=== PATIENT | female | born 1970 | race Caucasian/White ===

== ENCOUNTER → 2017-11-07 | Outpatient (CLI) | payer BC | END | disposition home or self-care (01) | LOC: KCIC MRI 16:42 | DX: M50.321 Other cervical disc degeneration at C4-C5 level (principal); M43.12 Spondylolisthesis, cervical region; M48.02 Spinal stenosis, cervical region; G89.29 Other chronic pain | CPT/HCPCS: 72141 ==

== ENCOUNTER → 2017-12-23 | Outpatient (CLI) | payer BC ==
[~2017-12-23] MED LIST: IOHEXOL 180 MG/ML 10 ML VIAL.; LIDOCAINE 1% PF 2 ML VIAL.; methylPREDNISolone ACETATE 40 MG/ML VIAL.; methylPREDNISolone ACETATE 80 MG/ML VIAL.
== END | disposition home or self-care (01) ==
LOC: PNCL 07:42
DX: M50.122 Cervical disc disorder at C5-C6 level with radiculopathy (principal); M47.22 Other spondylosis with radiculopathy, cervical region; I10 Essential (primary) hypertension; M19.90 Unspecified osteoarthritis, unspecified site; Z85.828 Personal history of other malignant neoplasm of skin; G43.909 Migraine, unspecified, not intractable, without status migrainosus; Z90.49 Acquired absence of other specified parts of digestive tract; Z98.890 Other specified postprocedural states; Z79.899 Other long term (current) drug therapy; Z88.5 Allergy status to narcotic agent; Z83.3 Family history of diabetes mellitus; Z82.49 Family history of ischemic heart disease and other diseases of the circulatory system; Z83.79 Family history of other diseases of the digestive system
CPT/HCPCS: 62321; J1030; J1040; Q9965

== ENCOUNTER → 2018-01-06 | Outpatient (CLI) | payer BC | END | disposition home or self-care (01) | LOC: PNCL 08:06 | DX: M50.123 Cervical disc disorder at C6-C7 level with radiculopathy (principal); M47.22 Other spondylosis with radiculopathy, cervical region; Z88.6 Allergy status to analgesic agent | CPT/HCPCS: 62321; J1030; J1040; Q9965 ==

== ENCOUNTER → 2018-01-25 | Outpatient (CLI) | payer BC ==
[~2018-01-25] MED LIST changes: -LIDOCAINE 1% PF 2 ML VIAL.
== END | disposition home or self-care (01) ==
LOC: PNCL 08:08
DX: M50.123 Cervical disc disorder at C6-C7 level with radiculopathy (principal); M47.22 Other spondylosis with radiculopathy, cervical region; Z88.6 Allergy status to analgesic agent; Z90.49 Acquired absence of other specified parts of digestive tract; I10 Essential (primary) hypertension; Z83.3 Family history of diabetes mellitus; Z83.79 Family history of other diseases of the digestive system; Z82.49 Family history of ischemic heart disease and other diseases of the circulatory system; G43.909 Migraine, unspecified, not intractable, without status migrainosus; Z79.899 Other long term (current) drug therapy; Z85.828 Personal history of other malignant neoplasm of skin; M19.90 Unspecified osteoarthritis, unspecified site
CPT/HCPCS: 62321; J1030; J1040; Q9965

== ENCOUNTER → 2018-02-10 | Outpatient (CLI) | payer BC ==
[~2018-02-10] MED LIST changes: +BUPIVACAINE MPF 0.25% 10 ML VIAL.; +LIDOCAINE 2% PF 2ML VIAL.
== END | disposition home or self-care (01) ==
LOC: PNCL 07:53
DX: M50.122 Cervical disc disorder at C5-C6 level with radiculopathy (principal); M47.812 Spondylosis without myelopathy or radiculopathy, cervical region; I10 Essential (primary) hypertension; G43.909 Migraine, unspecified, not intractable, without status migrainosus; Z88.6 Allergy status to analgesic agent; Z79.899 Other long term (current) drug therapy; Z90.49 Acquired absence of other specified parts of digestive tract; Z83.3 Family history of diabetes mellitus; Z83.79 Family history of other diseases of the digestive system; Z82.49 Family history of ischemic heart disease and other diseases of the circulatory system; Z85.828 Personal history of other malignant neoplasm of skin; Z98.890 Other specified postprocedural states
CPT/HCPCS: 64490; 64491; 64492; J1030; J1040; J2001; J3490; Q9965